=== PATIENT | female | born 1970 | race Caucasian/White ===

== ENCOUNTER → 2016-11-26 | Outpatient (REF) | LOC: WSOH 09:29 | DX: Z00.00 Encounter for general adult medical examination without abnormal findings (principal) ==

== ENCOUNTER → 2020-02-07 | Outpatient (CLI) | payer BC ==
[2005-09-12 15:55] VITALS: PULSE 65; TEMP 98.6
== END ==
LOC: MC.RAD 15:41
DX: Z12.31 Encounter for screening mammogram for malignant neoplasm of breast (principal); R92.0 Mammographic microcalcification found on diagnostic imaging of breast; N63.10 Unspecified lump in the right breast, unspecified quadrant; N63.20 Unspecified lump in the left breast, unspecified quadrant

== ENCOUNTER → 2020-02-16 | Outpatient (CLI) | payer BC ==
[2005-09-12 15:55] VITALS: PULSE 65; TEMP 98.6
== END ==
LOC: MC.RAD 10:51
DX: N63.11 Unspecified lump in the right breast, upper outer quadrant (principal); N63.21 Unspecified lump in the left breast, upper outer quadrant; R92.0 Mammographic microcalcification found on diagnostic imaging of breast

== ENCOUNTER → 2020-03-07 | Outpatient (CLI) | payer BC ==
[2005-09-12 15:55] VITALS: PULSE 65; TEMP 98.6
== END ==
LOC: MC.RAD 08:30
DX: D05.12 Intraductal carcinoma in situ of left breast (principal); N60.01 Solitary cyst of right breast; R92.0 Mammographic microcalcification found on diagnostic imaging of breast